=== PATIENT | female | born 1965 | race Two or more races ===

== ENCOUNTER 2018-08-31 10:20 | Day surgery (SDC) | payer OTHER ==
[2018-08-31] MEDS ORDERED: CEFAZOLIN 1 GM/50 ML (PMX) 50 ML IVPB (12:32)
[2018-08-31] MEDS ORDERED: FENTAnyl 50 MCG/ML VIAL (12:35)
[2018-08-31] MEDS ORDERED: MIDAZOLAM 1 MG/ML 2 ML INJ (12:35)
[2018-08-31] MEDS ORDERED: LIDOCAINE 1%/EPI (1:100,000) (MDV) 20 ML (12:36)
== END 2018-08-31 14:21 | disposition home or self-care (01) ==
LOC: SDS 10:20
DX: R55 Syncope and collapse (principal)
CPT/HCPCS: 33285